=== PATIENT | female | born 1995 | race Hispanic/Latino ===

== ENCOUNTER 2017-10-20 10:45 | Day surgery (SDC) | payer OTHER ==
[2017-10-16 13:56] VITALS: BMI 50.5
[2017-10-20] MEDS ORDERED: CEFAZOLIN/Water 2 GM/20 ML SYRINGE ONE (12:19)
[2017-10-20] MEDS ORDERED: Clindamycin/D5W 600 mg/50 ml Premix Bag ONE (14:01)
[2017-10-20] MEDS ORDERED: Bupivacaine PF 0.5% 30 ML VIAL ONE (16:16)
[2017-10-20] MEDS ORDERED: Bacitracin Zinc Ointment 30 gm TUBE ONE (16:16)
[2017-10-20] MEDS ORDERED: Sodium Chloride 0.9% 0 ML ONE (16:16)
[2017-10-20] MEDS ORDERED: Fentanyl 250 MCG/5 ML VIAL ONE (16:17)
[2017-10-20] MEDS ORDERED: Midazolam HCl 2 mg/2 ml Vial ONE (16:17)
[2017-10-20] MEDS ORDERED: Fentanyl 100 MCG/2 ML VIAL ONE ×2 (16:22→18:02)
[2017-10-20] MEDS ORDERED: Ketorolac Tromethamine 30 MG/ML VIAL ONE (18:15)
--- NOTE | 2017-10-20 21:00 | RAD ---
THREE VIEWS OF THE LEFT THUMB: 10/20/17 COMPARISON: 10/09/17. HISTORY: Left thumb fracture FINDINGS/IMPRESSION: Three limited intraoperative fluoroscopic views of the left thumb were submitted for interpretation. There are K-wires spanning the metacarpal phalangeal joints of the thumb and are likely spanning the previously seen fracture of the base of the proximal phalanx. This fracture cannot be identified on t hese limited fluoroscopic views. POS: ADAM
--- NOTE | 2017-10-21 14:24 | OP ---
DATE OF PROCEDURE: 10/20/2017 PREOPERATIVE DIAGNOSES: Left thumb displaced proximal phalanx fracture (radial corner avulsion with radial collateral ligament involved rotated and displaced with a step off at joint). POSTOPERATIVE DIAGNOSES: Left thumb displaced proximal phalanx fracture (radial corner avulsion with radial collateral ligament involved rotated and displaced with a step off at the joint). PROCEDURES: 1. Closed reduction with percutaneous fixation x2 with two K wires/(1.1) mm wires. 2. C-arm supervision. COMPLICATIONS: None. TOURNIQUET TIME: None. ESTIMATED BLOOD LOSS: Less than or equal to 1 mL. C-arm time 7 seconds. HISTORY: The patient presented to clinic with instability to thumb after injuring with a fragment th at was rotated at least 90 degrees away from the joint, with step off at the joint and displacement a t the radial corner. This intra-articular fracture probably would not heal in this position of a tejal l with healed abnormally, but with instability and possible early osteoarthritis. For this reason, f ixation and reduction were indicated. DESCRIPTION OF PROCEDURE: After successful general LMA technique, the limb was prepped and draped. A timeout was done appropriately. The limb was then injected with 8 mL of 0.5% Marcaine to block the radial and dorsal side of the thumb. C-arm brought to the filed identified the fragment, and then after flexion, direct pressure at the ba se of the fragment, and radial side translation. The fracture reduced near anatomically. With more pressure, it became anatomic. We then passed 2 K wires; one slightly , one at the dorsal third, one at palmar third fragment and crossing and this maintained anatomic joint reduction. Wires were cut and bent below the skin, we obtained hemostasis. C-arm confirmed this in all directions and bulk y dressing with a thumb spica splint was applied. She left the operating room without complications.
== END 2017-10-20 20:00 | disposition home or self-care (01) ==
LOC: SDC 10:45
PROVIDERS: ATTEND Orthopaedic Surgery Hand Surgery
PROC: 0PSS34Z Reposition Left Thumb Phalanx with Internal Fixation Device, Percutaneous Approach (ICD-10-PCS; principal; 2017-10-20)
DX: S62.512A Displaced fracture of proximal phalanx of left thumb, initial encounter for closed fracture (principal); Z79.84 Long term (current) use of oral hypoglycemic drugs; Z79.2 Long term (current) use of antibiotics; Z79.3 Long term (current) use of hormonal contraceptives; Z79.899 Other long term (current) drug therapy; Z88.0 Allergy status to penicillin; Z91.011 Allergy to milk products
CPT/HCPCS: 76001; 96372; 96374; A4216; J1885; J2250; J3010; J3490; S0020